=== PATIENT | male | born 1990 | race Caucasian/White ===

== ENCOUNTER → 2024-02-14 | Outpatient (CLI) | payer MEDICAID, SELFPAY ==
--- NOTE | 2024-02-14 14:10 | RAD_ITS ---
INDICATION: back pain EXAMINATION/TECHNIQUE: X-RAY - XR Spine Lumbar 2 or 3 Views COMPARISON: No relevant prior comparison study available FINDINGS: VERTEBRAE: Preserved vertebral body height. No fracture. No spondylolisthesis. Preservation of the normal lumbar lordosis. No significant facet arthropathy. DISCS: Disc spaces are maintained. INCLUDED ABDOMEN: Included bowel gas pattern is non-obstructive. RAD/Lumbar Spine 2 or 3 Views IMPRESSION: No evidence of lumbar spinal fracture or spondylolisthesis. Electronically Signed: Shahriar Grimes MD at 14:38 EDT ,
== END | disposition home or self-care (01) ==
LOC: MTRAD 14:10
PROVIDERS: PCP Family Medicine; Referring Provider Family Medicine; Visit Provider Family Medicine
DX: M48.00 Spinal stenosis, site unspecified (principal)
CPT/HCPCS: 72100

== ENCOUNTER 2024-03-22 12:30 | Outpatient (RCR) | payer MEDICAID, SELFPAY ==
--- NOTE | 2024-02-21 14:47 | HP.PTEVAL_ITS ---
Patient's Visit Information Visit Information Visit Information: BARBARA YAP is a 33 year old M referred to Physical Therapy by Dr. Julio Culp DO with a diagnosis of SPINAL STENOSIS. 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 Patient seen DR kristen SHORT. Patient had x-rays -Patient stated back pain worse with prior job demands made symptoms worse. Patient gets lumbar symmetrical ache occasional sharp pain. Aggravating bending,lifting ,standing. Alleviating factors sitting rest. Denies paresthesia/tingling-.Bowel/bladder -. Coughing/sneezing -. Patient sleeping good. Medication: meloxicam. No trauma or injury. Patient has lifting which caused back pain described as ache.Patient pain affects QOL and function/job demands. Patient goals to decrease pain. SOCAIL: single VOCATION: unemployed Pain Bilateral Back: Pain Intensity (Out of 10): 2 Pain Intensity Range: 10 Objective Objective: POSTURE: WFL PALPATION: unremarkable NEURO: denies paresthesia/tingling ,reflexes L3-4,L4-5-S1 2/3 FLEXABILITY: hamstrings mod tight LUMBAR ROM: flexion min loss ,extension min loss ,side glides min loss MMT: quads/hams 5/5 ,ankle 5/5 ,hip flexion 5/5 Special Tests L/S Slump test left side: Negative L/S Slump test right side: Negative L/S Left Straight Leg Raise: Negative L/S Right Straight Leg Raise: Negative Lumbar Standing: Flexion - Mechanical Response: No effect Lumbar Standing: Flexion - Symptoms During Testing: Increases Lumbar Standing: Flexion - Symptoms After Testing: Worse Lumbar Standing: Extension - Mechanical Response: No effect Lumbar Standing: Extension - Symptoms During Testing: Decreases Lumbar Standing: Extension - Symptoms After Testing: Better Lumbar Standing: Right Side Glides - Mechanical Response: No effect Lumbar Standing: Right Side [place] - Symptoms During Testing: No effect Lumbar Standing: Right Side [place] - Symptoms After Testing: No effect Lumbar Standing: Left Side [place] - Mechanical Response: No effect Lumbar Standing: Left Side [place] - Symptoms During Testing: No effect Lumbar Standing: Left Side [place] - Symptoms After Testing: No effect Lumbar Lying: Flexion - Mechanical Response: No effect Lumbar Lying: Flexion - Symptoms During Testing: No effect Lumbar Lying: Flexion - Symptoms After Testing: No effect Lumbar Lying: Extension - Mechanical Response: No effect Lumbar Lying: Extension - Symptoms During Testing: Decreases Lumbar Lying: Extension - Symptoms After Testing: Better Balance/Special Test Scores Oswestry Low Back Score: 20 Goals Goal 1:: Patient to be I with HEP for lumbar Goal Time Frame: 4-6 Weeks Goal 2:: Patient to demonstrated 50% improvement with less pain and improved function. Goal Time Frame: 4-6 Weeks Goal 3:: Patient to improve lumbar ROM for function of recovery to lift effectly Goal Time Frame: 4-6 Weeks Goal 4:: Patient to improve back oswestry score by 5 points to improve QOL and function Goal Time Frame: 4-6 Weeks Goal 5:: Patient be able to improve posture/body mechanics 90% for prophylaxis Rehabilitation Potential Physical Therapy Diagnosis: This patient has lumbar pain with possible derangement with pain with positioning and motion testing thus benefit from skilled PT Rehabilitation Potential: Good Anticipated Interventions Patient/Client Instruction: Educate patient on: Condition and Plan of Care For the Purpose of:: To decrease pain, To increase ROM, To improve muscle performance and motor function, To improve ability to perform ADL's, To increase tolerance to activity/condition/position, To improve ability of physical actions for home/community/work/leisure, To improve health of tissue, To decrease soft tissue restriction, To increase flexibility/ROM, To prevent re-injury and To improve tolerance to ADL's Therapeutic Exercise to Include: Strength training, Postural training, Flexibilty training and Dynamic Lumbar Stabilization For the Purpose of:: To decrease pain, To increase ROM, To improve muscle performance and motor function, To improve ability to perform ADL's, To increase tolerance to activity/condition/position, To improve ability of physical actions for home/community/work/leisure, To improve health of tissue, To decrease soft tissue restriction, To improve endurance and To reduce risk of recurrence Text: Thank you for the opportunity to evaluate your patient. For Medicare and Medicare HMO plans, please review the plan of care and approve it. It will need to be FAXED BACK to us at [phone] for Medicare purposes. For Medicare only, by signing this I certify the plan of care. Please let me know if there are questions or concerns regarding this plan of care. Physician Signature: Date:
--- NOTE | 2024-04-04 16:41 | HP.PTDCSUM ---
Discharge Summary D/C summary: It has been my pleasure to treat BARBARA YAP referred by Dr. Julio Culp DO, with the diagnosis of SPINAL STENOSIS for a total of 7 visit(s). Discharge Date: Please see the following information for a summary of their discharge status. Subjective Subjective: Not much better dependant on standing ,bending/lifting. Pain Bilateral Back: Pain Intensity (Out of 10): 1 Objective Objective/Function: POSTURE: WFL PALPATION: unremarkable NEURO: denies paresthesia/tingling ,reflexes L3-4,L4-5-S1 2/3 FLEXABILITY: hamstrings mod tight LUMBAR ROM: flexion min loss ,extension min loss ,side glides min loss MMT: quads/hams 5/5 ,ankle 5/5 ,hip flexion 5/5 Special Tests L/S Slump test left side: Negative L/S Slump test right side: Negative L/S Left Straight Leg Raise: Negative L/S Right Straight Leg Raise: Negative Goals Goal 1:: Patient to be I with HEP for lumbar Goal Progress: Progressing Goal 2:: Patient to demonstrated 50% improvement with less pain and improved function. Goal Progress: Progressing Goal 3:: Patient to improve lumbar ROM for function of recovery to lift effectly Goal Progress: Progressing Goal 4:: Patient to improve back oswestry score by 5 points to improve QOL and function Goal Progress: Progressing Goal 5:: Patient be able to improve posture/body mechanics 90% for prophylaxis Goal Progress: Progressing Plan Plan: RTD MAY BENEFIT FROM MRI PER MD D/C Information d/c sentence: If there are questions or concerns regarding this patient's physical therapy, please feel free to call me at [phone]. Thank you for the referral of this patient. Sincerely, Fabiano Saenz, PT, Cert MDT, OCS Balance/Gait/Functional tests Balance/Special Test Scores Oswestry Low Back Score: 20
== END 2024-03-22 19:00 | disposition home or self-care (01) ==
LOC: PT 12:30
PROVIDERS: PCP Family Medicine; Referring Provider Family Medicine; Visit Provider Family Medicine
DX: M48.00 Spinal stenosis, site unspecified (principal)
CPT/HCPCS: 97110; 97162; 97530

== ENCOUNTER → 2024-04-23 | Outpatient (CLI) | payer MEDICAID, SELFPAY ==
--- NOTE | 2024-04-23 07:48 | MRI_ITS ---
STUDY: MRI LUMBAR SPINE WITHOUT CONTRAST REASON FOR EXAM: Male, 33 years old. LUMBAR PAIN TECHNIQUE: Standardized fat and water weighted pulse sequences were obtained in the sagittal and axial planes. COMPARISON: X-ray 02/14/2024 FINDINGS: T12-L1: Normal endplates. Normal disc height, hydration and morphology. Normal bilateral facet joints. Normal central canal and bilateral lateral recesses. Normal bilateral intervertebral neural foramina. Normal lumbar lordosis. There is no substantial scoliosis. Normal conus medullaris that terminates at the T12/L1. L1-2: Normal endplates. Normal disc height, hydration and morphology. Normal bilateral facet joints. Normal central canal and bilateral lateral recesses. Normal bilateral intervertebral neural foramina. L2-3: Normal endplates. Normal disc height, hydration and morphology. Normal bilateral facet joints. Normal central canal and bilateral lateral recesses. Normal bilateral intervertebral neural foramina. L3-4: Normal endplates. Normal disc height, hydration and morphology. Normal bilateral facet joints. Normal central canal and bilateral lateral recesses. Normal bilateral intervertebral neural foramina. L4-5: Some disc desiccation but no disc protrusion, spinal stenosis, neural foraminal stenosis. L5-S1: Some disc desiccation but no disc protrusion, spinal stenosis, neural foraminal stenosis Normal visualized sacral ala. Mild friction related edema in the posterior subcutaneous fat. MRI/Spine Lumbar (Routine) IMPRESSION: Normal unenhanced MR examination of the lumbar spine. Electronically Signed: Gino Munguia MD at 13:34 EDT ,
== END | disposition home or self-care (01) ==
LOC: MRI 07:37
PROVIDERS: PCP Family Medicine; Referring Provider Physician Assistant; Visit Provider Physician Assistant
DX: M54.50 Low back pain, unspecified (principal)
CPT/HCPCS: 72148

== ENCOUNTER → 2024-05-30 | Outpatient (CLI) | payer MEDICAID, SELFPAY ==
--- NOTE | 2024-05-30 09:01 | NEURO ---
NCS and/or EMG Patient Report Ordering Doctor: Julio Culp DATE OF SERVICE: 05/30/24 Sree presents with complaints of bilateral upper extremity numbness and tingling. Neurodiagnostic findings: Median motor nerve demonstrates normal distal latency, amplitude and conduction velocity bilaterally. Ulnar motor response is within normal limits bilaterally. Normal median and ulnar F?waves. Sensory responses are normal. Needle EMG testing was performed in the upper limbs. All muscles tested showed no evidence of denervation with normal motor unit action potentials. Electrodiagnostic impression: This is normal electrodiagnostic study of the upper limbs. There is no electrodiagnostic evidence for peripheral neuropathy, including carpal tunnel or cubital tunnel syndrome. There is no electrodiagnostic evidence for a radial neuropathy. There is no electrodiagnostic evidence for cervical radiculopathy. Multi Select Codes Neurology Neurology Interp Codes: 26604-57 Musc test done w/n test comp (interp) (2) and 31181-93 Nrv cndj test 13/> studies (interp)
== END | disposition home or self-care (01) ==
LOC: PSN 06:48
PROVIDERS: PCP Family Medicine; Referring Provider Family Medicine; Visit Provider Family Medicine
DX: G56.30 Lesion of radial nerve, unspecified upper limb (principal)
CPT/HCPCS: 95886; 95913

== ENCOUNTER 2024-07-19 08:33 | Outpatient (RCR) | payer MEDICAID, SELFPAY | END 2024-08-11 23:59 | LOC: NS 08:33 | PROVIDERS: PCP Family Medicine; Referring Provider Family Medicine; Visit Provider Family Medicine | DX: Z71.3 Dietary counseling and surveillance (principal); E66.01 Morbid (severe) obesity due to excess calories; Z68.43 Body mass index [BMI] 50.0-59.9, adult | CPT/HCPCS: 97802 ==

== ENCOUNTER 2024-08-21 08:51 | Outpatient (RCR) | payer MEDICAID, SELFPAY | END 2024-09-11 23:59 | LOC: NS 08:51 | PROVIDERS: PCP Family Medicine; Referring Provider Family Medicine; Visit Provider Family Medicine | DX: Z71.3 Dietary counseling and surveillance (principal); E66.01 Morbid (severe) obesity due to excess calories; Z68.43 Body mass index [BMI] 50.0-59.9, adult | CPT/HCPCS: 97803 ==

== ENCOUNTER 2024-09-24 08:54 | Outpatient (RCR) | payer MEDICAID, SELFPAY | END 2024-10-12 23:59 | LOC: NS 08:54 | PROVIDERS: PCP Family Medicine; Referring Provider Family Medicine; Visit Provider Family Medicine | DX: Z71.3 Dietary counseling and surveillance (principal); E66.01 Morbid (severe) obesity due to excess calories; Z68.43 Body mass index [BMI] 50.0-59.9, adult | CPT/HCPCS: 97803 ==

== ENCOUNTER 2024-11-05 09:37 | Outpatient (RCR) | payer MEDICAID, SELFPAY | END 2024-11-09 23:59 | LOC: NS 09:37 | PROVIDERS: PCP Family Medicine; Referring Provider Family Medicine; Visit Provider Family Medicine | DX: E66.01 Morbid (severe) obesity due to excess calories (principal) | CPT/HCPCS: 97803 ==

== ENCOUNTER 2024-11-17 11:55 | Emergency (ER) | payer MEDICAID, SELFPAY ==
[2024-11-17 11:56] VITALS: BP 152/90; PULSE 104; RESP 16; TEMP 36.4; O2SAT 99; BMI 49.7
[2024-11-17] MEDS: Lidocaine 1% (20 ml mdv) 20 ML Vial 10 ML INFILT (12:38)
--- NOTE | 2024-11-17 13:51 | EDS_ITS ---
HPI History of Present Illness Chief Complaint: Abscess Narrative Narrative: Patient is a 34-year-old male with no known significant past medical history who presented to the emergency department with chief complaint of buttock pain. According to the patient he states the last few days he has noted worsening buttock pain and increased swelling just below his buttocks. He states that he has had this happen before but they have not gotten to the size. He states that it is very painful for him to sit or attempt to walk therefore he came here for the valuation management. Patient denies any history of diabetes. PFSH PFSH Medical History no medical history Home Medications ?Medication ?Instructions ?Recorded ?Last Taken ?Type ibuprofen 125 mg-acetaminophen 250 1 tab PO Q8H PRN Unknown History mg tablet (Advil Dual Action) cephalexin 500 mg capsule 500 mg PO Q12H 7 days #14 ca ps 11/17/24 Unknown Rx sulfamethoxazole 800 1 tab PO Q12H 7 days #14 tab s 11/17/24 Unknown Rx mg-trimethoprim 160 mg tablet (Bactrim DS) Allergy/AdvReac Type Severity Reaction Status Date / Time No Known Allergies Allergy Verified 11/17/24 11:57 Family History Father Diabetes Arthritis Grandfather Testicular cancer Social History adopted: No household members: family current occupational status: unemployed pets and animals: Yes (1) pets and animals: dog(s) sexually active: No Smoking Status: Current every day smoker tobacco type: cigarettes Tobacco: How many years used: 12 alcohol intake: never substance use type: does not use caffeine: Yes (6) Type: other frequency: does not exercise do you feel safe at home: Yes ROS ROS ED ROS Narrative Constitutional: Denies fevers, chills, headaches, lightness, dizziness Eyes: Denies change in vision double vision blurry vision Abdomen: Complains of left buttock pain denies abdominal pain nausea vomiting : Denies urinary symptoms Neurological: Denies numbness, weakness, tingling Musculoskeletal: Denies back pain Skin: Complains of swelling near his but as noted above EXAM Physical Exam Narrative Exam Narrative: General: Patient was lying in bed rest comfortably did not appear to be in acute distress Head: Atraumatic, normocephalic Eyes: PERRL bilaterally, EOMI bilaterally, no conjunctival injection noted Neck: Soft, supple, trachea midline Cardiovascular: Regular rate and rhythm no murmurs gallops rubs noted Abdomen: Soft, nondistended, nontender to palpation Genitourinary: No concern for Yonas's gangrene Rectal: Patient has a area of swelling noted in his perineal region there is fluctuance noted with tender to palpation, no concern for perirectal abscess Extremities: +5/5 strength noted in bilateral upper and lower extremities Neurological: Patient following commands knew that he was at [facility] year is 2024 Skin: See rectal Const Vital Signs: 11/17/24 11:56 Temperature 97.6 F L Temperature Source Temporal Pulse Rate 104 H Respiratory Rate 16 Blood Pressure 152/90 H Blood Pressure Mean 110 Pulse Ox 99 Oxygen Delivery Method Room Air MDM MDM MDM Narrative Medical decision making narrative: patient is a 34-year-old male who presented to the emergency department with chief complaint of perineal swelling. On the differential diagnose includes Melamin to cellulitis, abscess. Patient had the area anesthetized and incision and drainage was performed there was significant amount of purulent drainage expressed. Patient tolerated this well without complications. Patient was advised to do sitz bath as he was given general surgery follow-up as well as encouraged to follow-up with his primary care physician. Patient was given first dose of antibiotics here and antibiotics sent to the pharmacy. He is encouraged to return for worsening pain and swelling while on the antibiotics and was advised that if this occurs he will need to return for IV antibiotics. Patient's glucose was checked here and was normal. He is agreeable this plan all question concerns answered he is discharged home in stable condition and states that he is feeling much better. Lab Data Labs: Laboratory Results - last 24 hr 11/17/24 13:44 POC Glucose 81 Discharge Plan Triage Chief Complaint: Abscess ED Provider: Aston Caldera Dx/Rx/DC Orders Clinical Impression: Abscess of perineum Prescriptions: New cephalexin 500 mg capsule 500 mg PO Q12H 7 Days Qty: 14 0RF sulfamethoxazole-trimethoprim [Bactrim DS] 800-160 mg tablet 1 tab PO Q12H 7 Days Qty: 14 0RF No Action ibuprofen-acetaminophen [Advil Dual Action] 125-250 mg tablet 1 tab PO Q8H PRN Primary Care Provider: Julio Culp Referrals: Julio Culp, [Primary Care Provider] - Uli Elkins MD [Med Staff - Active Staff] - Activity Restrictions/Additional Instructions: Take antibiotics as prescribed. Follow-up on wound cultures that were obtained here with your primary care physician. You referred to general surgery as well. Ensure you are doing sitz bath as we discussed. If you are having fevers worsening pain significant drainage from the wound while on antibiotics you need to return for IV antibiotics. Print Language: Uzbek Disposition Disposition: Home, Self Care
[2024-11-17 14:01] LABS: Bedside Glucose 81 mg/dL (74-106)
[2024-11-17] MEDS: Smz/Tmp Ds Tablet 1 TABLET PO (14:07)
[2024-11-17] MEDS: Cephalexin 250 MG Capsule 500 MG PO (14:07)
[2024-11-17 14:08] VITALS: BP 159/89; PULSE 77; RESP 18; TEMP 37; O2SAT 100
== END 2024-11-17 14:20 | disposition home or self-care (01) ==
PROVIDERS: Emergency Provider Emergency Medicine; PCP Family Medicine; Visit Provider Emergency Medicine
DX: L02.215 Cutaneous abscess of perineum (principal); F17.210 Nicotine dependence, cigarettes, uncomplicated; B96.20 Unspecified Escherichia coli [E. coli] as the cause of diseases classified elsewhere; N45.1 Epididymitis; B95.8 Unspecified staphylococcus as the cause of diseases classified elsewhere
CPT/HCPCS: 10060; 82962; 87070; 87075; 87077; 87186; 87205; 99283

== ENCOUNTER 2024-12-06 09:41 | Outpatient (RCR) | payer MEDICAID, SELFPAY | END 2024-12-10 23:59 | LOC: NS 09:41 | PROVIDERS: PCP Family Medicine; Referring Provider Family Medicine; Visit Provider Family Medicine | DX: Z71.3 Dietary counseling and surveillance (principal); E66.01 Morbid (severe) obesity due to excess calories; Z68.42 Body mass index [BMI] 45.0-49.9, adult | CPT/HCPCS: 97803 ==

== ENCOUNTER 2025-01-09 09:45 | Outpatient (RCR) | payer MEDICAID, SELFPAY | END 2025-01-09 23:59 | LOC: NS 09:45 | PROVIDERS: PCP Family Medicine; Referring Provider Family Medicine; Visit Provider Family Medicine | DX: Z71.3 Dietary counseling and surveillance (principal); E66.01 Morbid (severe) obesity due to excess calories; Z68.42 Body mass index [BMI] 45.0-49.9, adult | CPT/HCPCS: 97803 ==

== ENCOUNTER 2025-02-13 10:42 | Outpatient (RCR) | payer MEDICAID, SELFPAY | END 2025-03-11 23:59 | LOC: NS 10:42 | PROVIDERS: PCP Family Medicine; Referring Provider Family Medicine; Visit Provider Family Medicine | DX: Z71.3 Dietary counseling and surveillance (principal); E66.01 Morbid (severe) obesity due to excess calories; Z68.42 Body mass index [BMI] 45.0-49.9, adult | CPT/HCPCS: 97803 ==

== ENCOUNTER 2025-03-20 10:51 | Outpatient (RCR) | payer MEDICAID, SELFPAY | END 2025-04-11 23:59 | LOC: NS 10:51 | PROVIDERS: PCP Family Medicine; Referring Provider Family Medicine; Visit Provider Family Medicine | DX: Z71.3 Dietary counseling and surveillance (principal); E66.01 Morbid (severe) obesity due to excess calories; Z68.42 Body mass index [BMI] 45.0-49.9, adult | CPT/HCPCS: 97803 ==

== ENCOUNTER 2025-04-29 10:51 | Outpatient (RCR) | payer MEDICAID, SELFPAY | END 2025-05-12 23:59 | LOC: NS 10:51 | PROVIDERS: PCP Family Medicine; Referring Provider Family Medicine; Visit Provider Family Medicine | DX: Z71.3 Dietary counseling and surveillance (principal); E66.01 Morbid (severe) obesity due to excess calories; Z68.42 Body mass index [BMI] 45.0-49.9, adult | CPT/HCPCS: 97803 ==

== ENCOUNTER 2025-06-03 10:48 | Outpatient (RCR) | payer MEDICAID, SELFPAY | END 2025-06-11 23:59 | LOC: NS 10:48 | PROVIDERS: PCP Family Medicine; Referring Provider Family Medicine; Visit Provider Family Medicine | DX: Z71.3 Dietary counseling and surveillance (principal); E66.01 Morbid (severe) obesity due to excess calories; Z68.42 Body mass index [BMI] 45.0-49.9, adult | CPT/HCPCS: 97803 ==

== ENCOUNTER 2025-07-09 09:55 | Outpatient (RCR) | payer MEDICAID, SELFPAY | END 2025-07-12 23:59 | LOC: NS 09:55 | PROVIDERS: PCP Family Medicine; Referring Provider Family Medicine; Visit Provider Family Medicine | DX: Z71.3 Dietary counseling and surveillance (principal); E66.01 Morbid (severe) obesity due to excess calories; Z68.42 Body mass index [BMI] 45.0-49.9, adult | CPT/HCPCS: 97803 ==

== ENCOUNTER 2025-08-20 09:54 | Outpatient (RCR) | payer MEDICAID, SELFPAY | END 2025-09-11 23:59 | LOC: NS 09:54 | PROVIDERS: PCP Family Medicine; Referring Provider Family Medicine; Visit Provider Family Medicine | DX: Z71.3 Dietary counseling and surveillance (principal); E66.01 Morbid (severe) obesity due to excess calories; Z68.42 Body mass index [BMI] 45.0-49.9, adult | CPT/HCPCS: 97803 ==

== ENCOUNTER 2025-09-07 09:55 | Emergency (ER) | payer MEDICAID, SELFPAY ==
[2025-09-07 09:55] VITALS: BP 147/97; PULSE 74; RESP 18; TEMP 36.7; O2SAT 100; BMI 47.2
--- NOTE | 2025-09-07 10:17 | EDS_ITS ---
HPI History of Present Illness Chief Complaint: Dental Narrative Narrative: Pt is a 34-year-old male who is presenting to the ER with chief complaint of dental pain, several small fractures of his teeth to the area of 1, 2, 3, 4, 5. Patient has a longstanding poor dental care and poor dentition. Patient has not seen a dentist for several years. Patient does not have any type of foul taste or pus in his mouth that suggest infection. Patient has mild mild swelling to the right upper gingiva. Patient states he did not get into a dentist today. Patient is having dental pain, taking Motrin [id number]. Patient is currently not employed. Patient denies any type of trauma, no facial trauma. Patient has no difficulty breathing, no airway compromise. No shortness of breath. Patient has no other intraoral pathology. Patient states that his insurance limits dental clinics he can see. Patient was given dental list, also was given multiple different avenues of dental clinics available, including [facility] and [place] along with health departments. Patient states any type of pressure over tooth 1, 2, 5 is causing moderate amount of pain. REVIEW OF SYSTEMS: Unless otherwise stated in this report the patient's positive and negative responses for review of systems for constitutional, eyes, ENT, cardiovascular, respiratory, gastrointestinal, neurological, , musculoskeletal, and integument systems and related systems to the presenting problem are either stated in the history of present illness or were not pertinent or were negative for the symptoms and/or complaints related to the presenting medical problem. Nurse's notes and vital signs reviewed. The patient is not hypoxic. Vital signs reviewed and patient is not hypoxic. Nurses notes reviewed and patient is noted to be non-hypoxic. General: The patient is comfortable, alert and oriented x3, well appearing, non toxic in no apparent distress. Head: Atraumatic and normocephalic. Eyes: Normal conjunctiva ENT: The oropharynx is normal. No pharyngeal erythema, uvular edema, tonsillar exudates, asymmetry or trismus. Uvula is midline. Mouth is normal to inspection With the exception of a mild pain on percussion of the tooth #1-5 significant and evidence of dental caries. There is no evidence of facial asymmetry or abscess formation. Floor of the mouth is soft. No tenderness in the submental or submandibular space. No tongue elevation or deviation. The patient has no evidence of periapical abscess, gingivitis, ANUG or other acute pathology. Airway is patent. Neck: The neck demonstrates normal range of motion. No meningeals signs are present. No stridor. No masses or lymphandenopathy noted. Respiratory: No acute distress, lungs are clear to auscultation, no wheezing, rhonchi, or rales noted. No stridor or retractions are noted. Cardiovascular: Regular rate and rhythm Skin: The skin exam shows no evidence of rashes Neuro: Alert and oriented x4, normal speech Lymphatic: No cervical lymphadenopathy PFSH PFSH Medical History no medical history Home Medications ?Medication ?Instructions ?Recorded ?Last Taken ?Type ibuprofen 125 mg-acetaminophen 250 1 tab PO Q8H PRN Unknown History mg tablet (Advil Dual Action) cephalexin 500 mg capsule 500 mg PO Q12H 7 days #14 ca ps 11/17/24 Unknown Rx sulfamethoxazole 800 1 tab PO Q12H 7 days #14 tab s 11/17/24 Unknown Rx mg-trimethoprim 160 mg tablet (Bactrim DS) penicillin V potassium 500 mg 500 mg PO 3XD #30 tabs 1 11/08/24 Unknown Rx tablet Allergy/AdvReac Type Severity Reaction Status Date / Time No Known Allergies Allergy Verified 09/07/25 09:56 Family History Father Diabetes Arthritis Grandfather Testicular cancer Social History adopted: No household members: family current occupational status: unemployed pets and animals: Yes (1) pets and animals: dog(s) sexually active: No Smoking Status: Current every day smoker tobacco type: cigarettes Tobacco: How many years used: 12 alcohol intake: never substance use type: does not use caffeine: Yes (6) Type: other frequency: does not exercise do you feel safe at home: Yes EXAM Physical Exam Const Vital Signs: 09/07/25 09:55 Temperature 98.1 F Temperature Source Oral Pulse Rate 74 Respiratory Rate 18 Blood Pressure 147/97 H Blood Pressure Mean 113 Pulse Ox 100 Oxygen Delivery Method Room Air MDM MDM MDM Narrative Medical decision making narrative: Patient was educated on alternating Tylenol, Motrin, Orajel, ice. Patient was placed on antibiotic prophylactically because patient needs multiple teeth that are going to be pulled. Patient has no acute signs of abscess at this time. Patient knows the importance of following up with a dentist. Patient was given a dental clinic list along with education on other avenues we may follow-up with. No acute indication for narcotics. Patient understands a follow-up with a dentist for definitive treatment. No question at discharge. Discharge Plan Triage Chief Complaint: Dental ED Provider: Jacoby Logan Dx/Rx/DC Orders Clinical Impression: Atypical face pain, Tooth decay Instructions: Benzocaine, Menthol Dental gel, Understanding Tooth Decay, ED Dental Pain Prescriptions: New penicillin V potassium 500 mg tablet 500 mg PO 3XD Qty: 30 0RF No Action ibuprofen-acetaminophen [Advil Dual Action] 125-250 mg tablet 1 tab PO Q8H PRN cephalexin 500 mg capsule 500 mg PO Q12H 7 Days Qty: 14 0RF sulfamethoxazole-trimethoprim [Bactrim DS] 800-160 mg tablet 1 tab PO Q12H 7 Days Qty: 14 0RF Primary Care Provider: Julio Culp Referrals: Julio Culp DO [Primary Care Provider, Internal Medicine] Activity Restrictions/Additional Instructions: Dental list has been provided. You may alternate Tylenol and either Motrin, Advil, ibuprofen every 4 hours as needed for pain/fever. Take anti-inflammatories with food or drink to help buffer the medication. MAX dose of Tylenol is 3000 mg a day. MAX dose of Motrin, Advil, ibuprofen is 2400 mg a day. You may also follow-up with [facility] or [place] [facility], despite not having dental insurance that covers them. The [facility] that you live and has a health department that is related to Dental clinics as well. Follow-up with PCP for further recommendations Use ice 20 minutes on, 20 minutes off, do not use heat. Antibiotic has been prescribed prophylactically to help prevent infection; So when you do see a dentist, dental work to be done. Print Language: Martiniquais Disposition Disposition: Home, Self Care Discharge Date/Time: 09/07/25 10:40
--- OUTSIDE RECORDS SUMMARY | 2025-09-07 10:25 | XMS RPT_ITS | CCD ---
Author Organization [facility] Care Team Providers Care Director Channel Name Role Phone Dr. Julio Culp DO Primary Care Provider Dr. Julio Culp DO Attending Provider [phone] Robbi FRANK, Dr. Julio Mcmullen Referring Provider [phone] Dr. Aston Caldera DO Emergency Provider Dr. Julio Culp DO Primary Care Provider Dr. Julio Culp DO Attending Provider [phone] Dr. Julio Culp DO Referring Provider [phone] Dr. Aston Caldera DO Attending Provider Dr. Aston Caldera DO Emergency Provider Dr. Julio Culp DO Primary Care Provider Dr. Julio Culp DO Attending Provider [phone] Dr. Julio Culp DO Referring Provider [phone] Dr. Julio Culp DO Primary Care Provider Dr. Julio Culp DO Attending Provider [phone] Dr. Julio Culp DO Referring Provider [phone] Dr. Julio Culp DO Primary Care Provider [phone] Dr. Julio Culp DO Attending Provider [phone] Dr. Julio Culp DO Referring Provider [phone] Dr. Julio Culp DO Primary Care Physician Dr. Julio Culp DO Attending Physician [phone] Julio Culp Attending Unavailable Julio Culp Primary Care Unavailable Julio Culp Referring Unavailable Brown, Julio R Attending Unavailable Brown, Julio R Primary Care Unavailable Brown, Julio R Referring Unavailable Brown, Ujlio R Attending Unavailable Brown, Julio R Referring Unavailable Brown, Julio R Primary Care Unavailable Brown, Julio R Primary Care Unavailable Aston Caldera Attending Unavailable Brown, Julio R Referring Unavailable Brown, Julio R Primary Care Unavailable Brown, Julio R Attending Unavailable Brown, Julio R Referring Unavailable Brown, Julio R Primary Care Unavailable Brown, Julio R Attending Unavailable Brown, Julio R Attending Unavailable Brown, Julio R Referring Unavailable Brown, Julio R Primary Care Unavailable Brown, Julio R Attending Unavailable Brown, Julio R Referring Unavailable Brown, Julio R Primary Care Unavailable Brown, Julio R Referring Unavailable Brown, Julio R Primary Care Unavailable Brown, Julio R Attending Unavailable Brown, Julio R Referring Unavailable Brown, Julio R Primary Care Unavailable Brown, Julio R Attending Unavailable Brown, Julio R Primary Care Unavailable Brown, Julio R Attending Unavailable Brown, Julio R Referring Unavailable Brown, Julio R Primary Care Unavailable Brown, Julio R Attending Unavailable Brown, Julio R Referring Unavailable Brown, Julio R Attending Unavailable Brown, Julio R Primary Care Unavailable Brown, Julio R Referring Unavailable Medications Current Medications Medication Drug Class(es) Dates Sig (Normalized) Sig (Original) acetaminophen 250 mg / ibuprofen 125 mg oral tablet (6 sources) Nonsteroidal Anti-inflammatory Drug Start: 04-13-2024 cephalexin 500 mg oral capsule (6 sources) Cephalosporin Antibacterial Start: 11-17-2024 take 1 capsule by mouth every twelve hours sulfamethoxazole 800 mg / trimethoprim 160 mg oral tablet (6 sources) Dihydrofolate Reductase Inhibitor Antibacterial, Sulfonamide Antimicrobial Start: 11-17-2024 Completed/Discontinued Medications Medication Drug Class(es) Dates Sig (Normalized) Sig (Original) etodolac 300 mg oral capsule (6 sources) Nonsteroidal Anti-inflammatory Drug Start: 09-30-2013 End: 02-14-2024 take 1 capsule by mouth three times daily at mealtime Etodolac 300 MG capsule Discontinued 300 mg PO 3 TIMES DAILY WITH MEALS 30 0 September 30, 2013 1:00am February 14, 2024 1:07pm meloxicam 15 mg oral tablet (6 sources) Nonsteroidal Anti-inflammatory Drug Start: 02-14-2024 End: 04-13-2024 take 1 tablet by mouth once daily Meloxicam 15 mg tablet Discontinued 15 mg PO DAILY 30 February 14, 2024 12:00am April 13, 2024 7:32am Problems Problem Classification Problem Date Documented Da te Episodic/Chronic Other nervous system disorders (6 sources) Radial neuropathy; 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, 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-24-2024 Chronic Other nutritional; endocrine; and metabolic disorders (6 sources) Morbid obesity; Translations: [Morbid (severe) obesity due to excess calories] 02-14-2024 Chronic Skin and subcutaneous tissue infections (6 sources) Abscess of perineum; Translations: [Cutaneous abscess of perineum] 11-17-2024 Episodic Spondylosis; intervertebral disc disorders; other back problems (12 sources) Low back pain; Translations: [Low back pain] 04-13-2024 Episodic Unclassified (1 source) Low back pain, unspecified; Translations: [Low back pain, unspecified] Onset: 11-26-2024 Results Test Name Value Interpretation Reference Range Facil ity Culture, Anaerobic Any Sourc rusty 11-21-2024 CUAN PERINEUM Studies have confirmed that Anaerobic Gram Positive Cocci are routinely SUSCEPTABLE to Penicillin and generally susceptible to Beta-lactams and Beta-lactamase inhibitors, Cephalosporins, Carbapenems and Metronidazole. They are showing increased RESISTANCE to Clindamycin Anaerobic cocci Normal [facility] Comment on above: Performed By: #### M 100.3000, M100.2000, M100.4001 #### [facility] [address] [place], [place], [id number] Wound Cultureon 11-20-2024 WC PERINEUM Escherichia coli Amount Growth Rare Staphylococcus haemolyticus Staphylococcus haemolyticus SCAP Staphylococcus epidermidis Staphylococcus capitis Staphylococcus epidermidis Ampicillin+Sulbac Islt LAVON 16 Cefepime Islt LAVON <=0.12 S cefTRIAXone Islt LAVON <=0.25 S Ciprofloxacin Islt LAVON <=0.06 S B-Lactamase Extended Susc Islt NEG Gentamicin Islt LAVON <=1 S levoFLOXacin Islt LAVON <=0.12 S Meropenem Islt LAVON <=0.25 S Pip+Tazo Islt LAVON <=4 S TMP SMX Islt LAVON >=320 R Staphylococcus haemolyticus: REACTION cefOXitin Susc Islt NEG Doxycycline Islt LAVON 4 Clindamycin Islt LAVON <=0.12 S Clindamycin.induced Susc Islt NEG Erythromycin Islt LAVON <=0.25 S Gentamicin Islt LAVON <=0.5 S Linezolid Islt LAVON 2 S Oxacillin Susc Islt <=0.25 S Tetracycline Islt LAVON >=16 R TMP SMX Islt LAVON <=10 S Vancomycin Islt LAVON <=0.5 S Staphylococcus capitis: REACTION cefOXitin Susc Islt NEG Doxycycline Islt LAVON 1 Clindamycin Islt LAVON <=0.12 S Clindamycin.induced Susc Islt NEG Erythromycin Islt LAVON <=0.25 S Gentamicin Islt LAVON <=0.5 S Linezolid Islt LAVON 2 S Oxacillin Susc Islt <=0.25 S Tetracycline Islt LAVON <=1 S TMP SMX Islt LAVON <=10 S Vancomycin Islt LAVON <=0.5 S Staphylococcus epidermidis: REACTION cefOXitin Susc Islt NEG Doxycycline Islt LAVON <=0.5 Clindamycin Islt LAVON 0.25 S Clindamycin.induced Susc Islt NEG Erythromycin Islt LAVON <=0.25 S Gentamicin Islt LAVON <=0.5 S Linezolid Islt LAVON 1 S Oxacillin Susc Islt <=0.25 S Tetracycline Islt LAVON <=1 S TMP SMX Islt LAVON <=10 S Vancomycin Islt LAVON <=0.5 S Normal [facility] Comment on above: Performed By: #### M 100.3000, M100.1999, M100.4001 #### [facility] [address] [place], [address] Gram Stainon 11-19-2024 GS PERINEUM Gram Stain 3+ White Blood Cells 3+ Gram negative rods Rare Gram positive cocci Rare Gram positive rods No Epithelial cells Normal [facility] Comment on above: Performed By: #### M 100.3000, M100.1999, M100.4001 #### [facility] [address] [place], [place], [address] Anaerobic cultureOrdered By: Aston Caldera on 11-17-2024 Bacteria identified Anaer cx Nom (Unsp spec) Anaerobic cocci Abnormal [facility] Bacteria identified Anaer cx Nom (Unsp spec)Ordered By: Aston Caldera on 11-17-2024 Anaerobic Culture Anaerobic cocci Abnormal [facility] Bedside Glucoseon 11-17-2024 FINGERSTICK GLU 81 mg/dL Normal 74-106 [facility] Comment on above: Result Comment: [place]ZZ [place] OF PATIENT CARE PER NURSING PROTOCOL Performed By: #### L 501.080 #### [facility] [address] [place], [address] Emergency Department Summary on 11-17-2024 Emergency Department Summary [facility] Medical Records Department [address] [place] [address] Emergency Department Summary 11/17/24 MR#: [id number] Acct: [id number] Name: BARBARA YAP Rep #: [id number] : 1990 34 From: Aston Caldera DO PCP: Dr. Julio Culp, DO Status:DEP ER Location: ED ADDENDUM by Dr. Danny Snow DO on 11/21/24 at 2320 Reviewed patient's wound culture notes E. coli staph hemolyticus, staph capitis, staph epididymitis. He sent home on Keflex and Bactrim. Both of these antibiotics will cover and has sensitivities to the bacteria. No changes to treatment at this time. 11/21/24 2320 Cosigner Signature (if applicable): cc: Dr. Julio Culp, * Signed HPI History of Present Illness Chief Complaint: Abscess Narrative Narrative: Patient is a 34-year-old male with no known significant past medical history who presented to the emergency department with chief complaint of buttock pain. According to the patient he states the last few days he has noted worsening buttock pain and increased swelling just below his buttocks. He states that he has had this happen before but they have not gotten to the size. He states that it is very painful for him to sit or attempt to walk therefore he came here for the valuation management. Patient denies any history of diabetes. PFSH PFSH Medical History no medical history Home Medications ???Medication ???Instructions ???Recorded ???Last Taken ???Type ibuprofen 125 mg-acetaminophen 250 1 tab PO Q8H PRN 04/13/24 Unknow n History mg tablet (Advil Dual Action) cephalexin 500 mg capsule 500 mg PO Q12H 7 days #14 caps 05/06 Unknown Rx sulfamethoxazole 800 1 tab PO Q12H 7 days #14 tabs 0305/06 Unknown Rx mg-trimethoprim 160 mg tablet (Bactrim DS) Allergy/AdvReac Type Severity Reaction Status Date / Time No Known Allergies Allergy Verified 11/17/24 11:57 Family History Father Diabetes Arthritis Grandfather Testicular cancer Social History adopted: No household members: family current occupational status: unemployed pets and animals: Yes (1) pets and animals: dog(s) sexually active: No Smoking Status: Current every day smoker tobacco type: cigarettes Tobacco: How many years used: 12 alcohol intake: never substance use type: does not use caffeine: Yes (6) Type: other frequency: does not exercise do you feel safe at home: Yes ROS ROS ED ROS Narrative Constitutional: Denies fevers, chills, headaches, lightness, dizziness Eyes: Denies change in vision double vision blurry vision Abdomen: Complains of left buttock pain denies abdominal pain nausea vomiting : Denies urinary symptoms Neurological: Denies numbness, weakness, tingling Musculoskeletal: Denies back pain Skin: Complains of swelling near his but as noted above EXAM Physical Exam Narrative Exam Narrative: General: Patient was lying in bed rest comfortably did not appear to be in acute distress Head: Atraumatic, normocephalic Eyes: PERRL bilaterally, EOMI bilaterally, no conjunctival injection noted Neck: Soft, supple, trachea midline Cardiovascular: Regular rate and rhythm no murmurs gallops rubs noted Abdomen: Soft, nondistended, nontender to palpation Genitourinary: No concern for Yonas's gangrene Rectal: Patient has a area of swelling noted in his perineal region there is fluctuance noted with tender to palpation, no concern for perirectal abscess Extremities: +5/5 strength noted in bilateral upper and lower extremities Neurological: Patient following commands knew that he was at [facility] year is 2024 Skin: See rectal Const Vital Signs: 11/17/24 11:56 Temperature 97.6 F L Temperature Source Temporal Pulse Rate 104 H Respiratory Rate 16 Blood Pressure 152/90 H Blood Pressure Mean 110 Pulse Ox 99 Oxygen Delivery Method Room Air MDM MDM MDM Narrative Medical decision making narrative: patient is a 34-year-old male who presented to the emergency department with chief complaint of perineal swelling. On the differential diagnose includes Melamin to cellulitis, abscess. Patient had the area anesthetized and incision and drainage was performed there was significant amount of purulent drainage expressed. Patient tolerated this well without complications. Patient was advised to do sitz bath as he was given general surgery follow-up as well as encouraged to follow-up with his primary care physician. Patient was given first dose of antibiotics here and antibiotics sent to the pharmacy. He is encouraged to return for worsening pain and swelling while on the antibiotics and was advised that if this occurs he will need to return for IV a (more content not included)... Normal [facility] deOrdered By: Aston Caldera on 11-17-2024 Bedside Glucose (Misc Panel) 81 mg/dL 74-106 [facility] Comment on above: MANAGEMENT OF PATIEN T CARE PER NURSING PROTOCOL Glucose [Mass/Vol] 81 mg/dL 74-106 [facility] Comment on above: MANAGEMENT OF PATI T CARE PER NURSING PROTOCOL Gram stainOrdered By: Aston Caldera on 11-17-2024 Microscopic observation Gram stain Nom (Unsp spec) [facility] Routine wound cultureOrdered By: Aston Caldera on 11-17-2024 Microbial culture, routine Staphylococcus haemolyticus Abnormal [facility] Microbial culture, routine Staphylococcus epidermidis Abnormal [facility] Wound Culture Escherichia coli Abnormal [facility] Wound Culture Staphylococcus haemolyticus Abnormal [facility] Wound Culture Staphylococcus capitis Abnormal [facility] Wound Culture Staphylococcus epidermidis Abnormal [facility] CNOVon 02-26-2021 CNOV Office Visit (UCWSTR) BARBARA YAP ([id number]) 1990 Date Time Provider Department 02/26/21 11:15 AM BRIT GONZALEZWSTR During your visit today, we recorded the following information about you: Temperature Pulse Respiration Blood pressure 97.4 degrees 77/minute 16/minute 122/80 Weight 164.5 kg Brit Gonzalez APRN.CNP 02/26/2021 11:35 AM Signed TOOTHACHE: Your exam shows that your toothache is probably due to tooth decay and infection. Poor dental care is the main cause of this problem. Swelling and redness around a painful tooth often means you have a dental abscess. Pain medicine and antibiotics can help reduce symptoms, but you will need to see a dentist within the next few days to have your problem properly treated. Fillings or root canal work may be needed to save your tooth. If the problem is severe, your tooth may need to be pulled. Please return here right away if you have a fever over 101F, can?t swallow, or develop severe swelling. Brit Gonzalez APRN.CNP 02/26/2021 12:54 PM Signed Visit Date: February 26, 2021 Patient Name: Mr.Justin Kaveh Yap Date of : 1990 MRN/E #: [id number] Chief Complaint Patient presents with: Toothache: toothache x 1 day History of present illness Barbara Yap is a 30 year old male. Presents with complaints of tooth pain, primarily in the front two teeth. He has an appointment scheduled with the dentist in March but is concerned for infection. Denies having any drainage from the teeth, no fever, chills, body aches, headache, or difficulty swallowing. He has been taking ibuprofen for pain with some relief. PAIN EVALUATION No data found in the last 1 encounters. ALLERGIES No Known Allergies PAST MEDICAL HISTORY Diagnosis Date - PMH - PAST MEDICAL HISTORY OF Varicella age 2 year, hospiatalized x 2 weeks, [facility] PAST SURGICAL HISTORY Procedure Laterality Date - NONE Social History Tobacco Use - Smoking status: Current Every Day Smoker - Smokeless tobacco: Never Used - Tobacco comment: not that much Substance Use Topics - Alcohol use: No - Drug use: No FAMILY HISTORY Problem Relation Age of Onset - Asthma Mother - Hypertension Father - Lipids Father Review of Systems Constitutional: Negative for chills, fever and malaise/fatigue. HENT: Tooth pain (front two teeth) Respiratory: Negative for cough, shortness of breath and wheezing. Cardiovascular: Negative for chest pain and palpitations. Gastrointestinal: Negative for abdominal pain, diarrhea, nausea and vomiting. Musculoskeletal: Negative for myalgias. Skin: Negative for itching and rash. Neurological: Negative for dizziness, tingling and headaches. Physical Exam Vitals and nursing note reviewed. Constitutional: Appearance: Normal appearance. HENT: Nose: No congestion. Mouth/Throat: Eyes: Extraocular Movements: Extraocular movements intact. Pupils: Pupils are equal, round, and reactive to light. Cardiovascular: Rate and Rhythm: Normal rate and regular rhythm. Pulses: Normal pulses. Heart sounds: Normal heart sounds. Pulmonary: Effort: Pulmonary effort is normal. Breath sounds: Normal breath sounds. Skin: General: Skin is warm. Neurological: Mental Status: He is alert and oriented to person, place, and time. Coordination: Coordination normal. BP 122/80 Pulse 77 Temp (Src) 97.4 (Tympanic) Resp 16 Wt 362 lb 9.6 oz (164.5kg) SpO2 98% Assessment/Plan (K08.89) Toothache (primary encounter diagnosis) -amoxicillin-clavula dano acid (AUGMENTIN) 875-125 mg per tablet -discussed red flags Take medication as ordered See dentist anitra Follow up if signs of infection worsen Brit Gonzalez APRN.SHAY Discussed above plan with patient. Pt agreeable with above plan. Referring Provider: SELF [200] Allergies As of Date: 02/26/2021 (No Known Allergies) Date Reviewed: 02/26/2021 Reviewed by: Marion Cosby LPN - Fully Assessed Reason for Visit: Toothache [1289] Cmt: toothache x 1 day Primary Visit Diagnosis:Toothache [K08.89] Order(s):amoxicillin -clavulanic acid (AUGMENTIN) 875-125 mg per tabletTake 1 tablet by mouth twice daily for 7 days.Disp: 14 tabletRfl: 0 Prescriptions as of 02/26/2021 Sig: IBUPROFEN 800 MG TABLET Take 1 tablet by mouth every * AMOXICILLIN 875 MG-POTASSIUM * Take 1 tablet by mouth twice * CODEINE 10 MG-GUAIFENESIN 100* Take 1-2 teaspoon(s) (5-10 m* Patient not taking: PSEUDOEPHEDRINE 30 MG TABLET Take 2 tablets every 4-6 hour* Patient not taking: Problem List As Of Date: 02/26/2021 (None) Other instructions from your clinician: TOOTHACHE: Your exam shows that your toothache is probably due to tooth decay and infection. Poor dental care is the main cause of this problem. Swelling and redness around a painful tooth often means you have a dental abscess. Pain medicine and antib (more content not included)... Normal [facility] Vital Signs Date Time Vital Sign Value Performing Clinician Ollie fragoso 06-03-2025 11:08-0400 Body height 182.[address] Julio Culp DO Work Phone: [facility] 06-03-2025 11:08-0400 Body weight 157.[address] Julio Culp DO Work Phone: [facility] 04-29-2025 11:11-0400 Body height 182.[address] Julio Culp DO Work Phone: [facility] 04-29-2025 11:11-0400 Body weight 159.[address] Julio Culp DO Work Phone: [facility] 03-20-2025 11:01-0400 Body height 182.[address] Julio Culp DO Work Phone: [facility] 03-20-2025 11:01-0400 Body weight 159.[address] Julio Culp DO Work Phone: [facility] 02-13-2025 11:03-0400 Body height 182.[address] Julio Culp DO Work Phone: [facility] 02-13-2025 11:03-0400 Body weight 159.[address] Julio Culp DO Work Phone: [facility] 01-09-2025 09:57-0400 Body weight 163.[address] Julio Culp DO Work Phone: [facility] 12-06-2024 10:00-0400 Body height 182.[address] Julio Culp DO Work Phone: [facility] 12-06-2024 10:00-0400 Body weight 165.[address] Julio Culp DO Work Phone: [facility] 11-17-2024 14:08-0500 Body temperature 98.6 [degF] Dr. Julio Culp DO Work Phone: [facility] 11-17-2024 14:08-0500 Diastolic blood pressure 89 mm[Hg] Dr. Julio Culp DO Work Phone: [facility] 11-17-2024 14:08-0500 Heart rate 77 /min Dr. Julio Culp DO Work Phone: [facility] 11-17-2024 14:08-0500 Respiratory rate 18 /min Dr. Julio Culp DO Work Phone: [facility] 11-17-2024 14:08-0500 SaO2% (BldA) [Mass fraction] 100 % Dr. Julio Culp DO Work Phone: [facility] 11-17-2024 14:08-0500 Systolic blood pressure 159 mm[Hg] Dr. Julio Culp DO Work Phone: [facility] 11-17-2024 11:56-0500 Body height 182.[address] Julio Culp DO Work Phone: [facility] 11-17-2024 11:56-0500 Body mass index (BMI) [Ratio] 49.7 kg/m2 Dr. Julio Culp DO Work Phone: [facility] 11-17-2024 11:56-0500 Body weight 166.[address] Julio Culp DO Work Phone: [facility] 11-05-2024 10:00-0500 Body weight 165.[address] Julio Culp DO Work Phone: [facility] 09-24-2024 09:00-0500 Body weight 168.[address] Julio Culp DO Work Phone: [facility] 08-21-2024 09:00-0500 Body weight 172.[address] Julio Culp DO Work Phone: [facility] Encounters Encounter Date Encounter Type Care Provider Facility Start: 08-20-2025 ambulatory Julio Culp Facilit y:[facility] Start: 07-09-2025 End: 07-12-2025 ambulatory Julio Culp Facility:[facility] Start: 06-03-2025 End: 06-11-[address] Julio Mcmullen DO -Nutritional Services Work Phone: Start: 06-03-2025 End: 06-11-[address] Julio Culp DO Work Phone: -Nutritional Services Start: 04-29-2025 End: 05-12-[address] Julio Mcmullen DO -Nutritional Services Work Phone: Start: 04-29-2025 End: 05-12-[address] Julio Culp DO Work Phone: -Nutritional Services Start: 03-20-2025 End: 04-11-[address] Julio Mcmullen DO -Nutritional Services Work Phone: Start: 03-20-2025 End: 04-11-[address] Julio Culp DO Work Phone: -Nutritional Services Start: 02-13-2025 End: 03-11-[address] Julio Mcmullen DO -Nutritional Services Work Phone: Start: 02-13-2025 End: 03-11-[address] Julio Culp DO Work Phone: -Nutritional Services Start: 01-09-2025 End: 01-09-[address] Julio Mcmullen DO -Nutritional Services Work Phone: Start: 01-09-2025 End: 01-09-2025 ambulatory Julio Culp Facility:[facility] Start: 12-06-2024 End: 12-10-[address] Julio Mcmullen DO -Nutritional Services Work Phone: Start: 12-06-2024 End: 12-10-[address] Julio Culp DO Work Phone: [facility] Work Phone: Start: 11-17-2024 End: 11-17-2024 Emergency department patient visit Dr. Julio Culp DO Work Phone: -Emergency Department Work Phone: Start: 11-05-2024 End: 11-09-[address] Julio Mcmullen DO -Nutritional Services Work Phone: Start: 11-05-2024 End: 11-09-2024 ambulatory Julio Culp Facility:[facility] Start: 09-24-2024 End: 10-12-[address] Julio Mcmullen DO -Nutritional Services Work Phone: Start: 09-24-2024 End: 10-12-2024 ambulatory Julio Culp Facility:[facility] Start: 08-21-2024 End: 09-11-[address] Julio Mcmullen DO -Nutritional Services Work Phone: Start: 08-21-2024 End: 09-11-2024 ambulatory Julio Culp Facility:[facility] Start: 07-19-2024 End: 08-11-2024 ambulatory Julio Culp Facility:[facility] Procedures Date Procedure Procedure Detail Performing Clinician Start: 11-17-[address] Julio Culp DO Work Phone: Start: 11-17-2024 Gram stain microscopy D alli Culp DO Work Phone: Start: 11-17-2024 End: 11-17-2024 Microbial culture, routine Dr. Julio Culp DO Work Phone: Plan of Treatment Date Care Activity Detail Author Start: 11-17-2024 [facility] Start: 11-17-2024 Anaerobic Culture [facility] [facility] Start: 11-17-2024 Incision & drainage abscess simple/single I&D ABSCESS SIMPLE/SINGLE [facility] Start: 11-17-2024 Microscopic observat ion [Identifier] in Unspecified specimen by Gram stain [facility] Start: 11-17-2024 Wound Culture Wound Culture [facility] Start: 11-17-2024 Source specific culture [facility] Bacteria identified in Unspecified specimen by Anaerobe culture [facility] Patient referral [facility] Work Phone: Wound microscopy, cu lture and sensitivities [facility] Payers Date Payer Category Payer Medicaid [id number] 2024 Self-pay Unknown [id number] 2.16.8 [id number] Unknown [id number] 2.16.8 [id number] Unknown [id number] 2.16.8 [id number] Unknown [id number] 2.16.8 [id number] Unknown [id number] 2.16.8 [id number] Unknown [id number] 2.16.8 [id number] Unknown [id number] 2.16.8 [id number] Unknown [id number] 2.16.8 [id number] Unknown [id number] 2.16.8 [id number] Unknown [id number] 2.16.8 [id number] Unknown [id number] 2.16.8 [id number] Unknown [id number] 2.16.8 [id number] Unknown [id number] 2.16.8 [id number] Social History Date Type Detail Facility Start: 11-17-2024 End: 11-17-2024 Tobacco smoking status NHIS Smokes tobacco daily (finding) [facility] Start: 11-17-2024 End: 12-11-2024 Sex Male (finding) [facility] Start: 1990 Sex Assigned At Male [facility] Sex Male [facility] Discharge summary 11-17-2024 Note Date & Type Note Facility 11-17-2024 Discharge summary [facility] Discharge summary 11-17-2024 Note Date & Type Note Facility 11-17-2024 Discharge summary Note Date/Time November 17, 2024 2:12 pm [facility] Medical Records Department [address] [place] [address] Emergency Department Summary 11/17/24 MR#: [id number] Acct: [id number] Name: BARBARA YAP Rep #:[id number] 9 : 1990 34 From: Aston Caldera DO PCP: Dr. Julio Culp, DO Status:RE G ER Location: ED HPI History of Present Illness Chief Complaint: Abscess Narrative Narrative: Patient is a 34-year-old male with no known significant past medical history whopresented to the emergency department with chief complaint of buttock pain. According to the patient he states the last few days he has noted worsening buttock pain and increased swelling just below his buttocks. He states that he has had this happen before but they have not gotten to the size. He states thatit is very painful for him to sit or attempt to walk therefore he came here for the valuation management. Patient denies any history of diabetes. PFSH PFSH Medical History no medical history Home Medications ?Medication ?Instructions ?Recorded ?Last Taken ?Type ibuprofen 125 mg-acetaminophen 250 1 tab PO Q8H PRN Unknown History mg tablet (Advil Dual Action) cephalexin 500 mg capsule 500 mg PO Q12H 7 days #14 ca ps 11/17/24 Unknown Rx sulfamethoxazole 800 1 tab PO Q12H 7 days #14 tab s 11/17/24 Unknown Rx mg-trimethoprim 160 mg tablet (Bactrim DS) Allergy/AdvReac Type Severity Reaction Status Date / Time No Known Allergies Allergy Verified 11/17/24 11:57 Family History Father Diabetes Arthritis Grandfather Testicular cancer Social History adopted: No household members: family current occupational status: unemployed pets and animals: Yes (1) pets and animals: dog(s) sexually active: No Smoking Status: Current every day smoker tobacco type: cigarettes Tobacco: How many years used: 12 alcohol intake: never substance use type: does not use caffeine: Yes (6) Type: other frequency: does not exercise do you feel safe at home: Yes ROS ROS ED ROS Narrative Constitutional: Denies fevers, chills, headaches, lightness, dizziness Eyes: Denies change in vision double vision blurry vision Abdomen: Complains of left buttock pain denies abdominal pain nausea vomiting : Denies urinary symptoms Neurological: Denies numbness, weakness, tingling Musculoskeletal: Denies back pain Skin: Complains of swelling near his but as noted above EXAM Physical Exam Narrative Exam Narrative: General: Patient was lying in bed rest comfortably did not appear to be in acutedistress Head: Atraumatic, normocephalic Eyes: PERRL bilaterally, EOMI bilaterally, no conjunctival injection noted Neck: Soft, supple, trachea midline Cardiovascular: Regular rate and rhythm no murmurs gallops rubs noted Abdomen: Soft, nondistended, nontender to palpation Genitourinary: No concern for Yonas's gangrene Rectal: Patient has a area of swelling noted in his perineal region there is fluctuance noted with tender to palpation, no concern for perirectal abscess Extremities: +5/5 strength noted in bilateral upper and lower extremities Neurological: Patient following commands knew that he was at [facility] year is 2024 Skin: See rectal Const Vital Signs: 11/17/24 11:56 Temperature 97.6 F L Temperature Source Temporal Pulse Rate 104 H Respiratory Rate 16 Blood Pressure 152/90 H Blood Pressure Mean 110 Pulse Ox 99 Oxygen Delivery Method Room Air MDM MDM MDM Narrative Medical decision making narrative: patient is a 34-year-old male who presented to the emergency department with chief complaint of perineal swelling. On the differential diagnose includes Melamin to cellulitis, abscess. Patient had the area anesthetized and incision and drainage was performed there was significant amount of purulent drainage expressed. Patient tolerated this well without complications. Patient was advised to do sitz bath as he was givengeneral surgery follow-up as well as encouraged to follow-up with his primary care physician. Patient was given first dose of antibiotics here and antibiotics sent to the pharmacy. He is encouraged to return for worsening painand swelling while on the antibiotics and was advised that if this occurs he will need to return for IV antibiotics. Patient's glucose was checked here and was normal. He is agreeable this plan all question concerns answered he is discharged home in stable condition and states that he is feeling much better. Lab Data Labs: Laboratory Results - last 24 hr 11/17/24 13:44 POC Glucose 81 Discharge Plan Triage Chief Complaint: Abscess ED Provider: Aston Caldera Dx/Rx/DC Orders Clinical Impression: Abscess of perineum Prescriptions: New cephalexin 500 mg capsule 500 mg PO Q12H 7 Days Qty: 14 0RF sulfamethoxazole-trimethoprim [Bactrim DS] 800-160 mg tablet 1 tab PO Q12H 7 Days Qty: 14 0RF No Action ibuprofen-acetaminophen [Advil Dual Action] 125-250 mg tablet 1 tab PO Q8H PRN Primary Care Provider: Julio Culp Referrals: Julio Culp DO [Primary Care Provider] - Uli Elkins MD [Med Staff - Active Staff] - Activity Restrictions/Additional Instructions: Take antibiotics as prescribed. Follow-up on wound cultures that were obtained here with your primary care physician. You referred to general surgery as well. Ensure you are doing sitz bath as we discussed. If you are having fevers worsening pain significant drainage from the wound while on antibiotics you needto return for IV antibiotics. Print Language: Romanian Disposition Disposition: Home, Self Care What to do if you have Problems For any increased pain, shortness of breath, bleeding, nausea or vomiting, chestpain, or any unexpected problems, contact your Primary Care Provider. Call [facility] ([phone]) or report to the closest Emergency Room. Call 911 if necessary. 11/17/24 1412 <Electronically signed by Aston Caldera DO> Cosigner Signature (if applicable): CC: Dr. Julio Culp DO ~ Signed [facility] Work Phone: Progress note 10-04-2021 Note Date & Type Note Facility 10-04-2021 Note HNO ID: [id number] Author: Noman Simon PA-C Service: ? Author Type: Physician Transmission Line Engineer Type: Progress Notes Filed: 10/04/2021 11:54 AM Note Text: This is an Express Care eVisit note for Barbara Yap eVisit/Questionnaire reviewed The chief complaint for the visit - Patient presents with: Sinus Problem Recommendations/Treatment plan - See My Chart Message to patient Noman Simon PA-C [facility] Progress note 02-26-2021 Note Date & Type Note Facility 02-26-2021 Note HNO ID: [id number] Author: Brit Gonzalez APRN.CNP Service: ? Author Type: Nurse Practitioner Type: Progress Notes Filed: 02/26/2021 12:54 PM Note Text: Visit Date: February 26, 2021 Patient Name: Mr.Justin Kaveh Yap Date of : 1990 MRN/E #: [id number] Chief Complaint Patient presents with: Toothache: toothache x 1 day History of present illness Barbara Yap is a 30 year old male. Presents with complaints of tooth pain, primarily in the front two teeth. He has an appointment scheduled with the dentist in March but is concerned for infection. Denies having any drainage from the teeth, no fever, chills, body aches, headache, or difficulty swallowing. He has been taking ibuprofen for pain with some relief. PAIN EVALUATION No data found in the last 1 encounters. ALLERGIES No Known Allergies PAST MEDICAL HISTORY Diagnosis Date - PM - PAST MEDICAL HISTORY OF Varicella age 2 year, hospiatalized x 2 weeks, [facility] PAST SURGICAL HISTORY Procedure Laterality Date - NONE Social History Tobacco Use - Smoking status: Current Every Day Smoker - Smokeless tobacco: Never Used - Tobacco comment: not that much Substance Use Topics - Alcohol use: No - Drug use: No FAMILY HISTORY Problem Relation Age of Onset - Asthma Mother - Hypertension Father - Lipids Father Review of Systems Constitutional: Negative for chills, fever and malaise/fatigue. HENT: Tooth pain (front two teeth) Respiratory: Negative for cough, shortness of breath and wheezing. Cardiovascular: Negative for chest pain and palpitations. Gastrointestinal: Negative for abdominal pain, diarrhea, nausea and vomiting. Musculoskeletal: Negative for myalgias. Skin: Negative for itching and rash. Neurological: Negative for dizziness, tingling and headaches. Physical Exam Vitals and nursing note reviewed. Constitutional: Appearance: Normal appearance. HENT: Nose: No congestion. Mouth/Throat: Eyes: Extraocular Movements: Extraocular movements intact. Pupils: Pupils are equal, round, and reactive to light. Cardiovascular: Rate and Rhythm: Normal rate and regular rhythm. Pulses: Normal pulses. Heart sounds: Normal heart sounds. Pulmonary: Effort: Pulmonary effort is normal. Breath sounds: Normal breath sounds. Skin: General: Skin is warm. Neurological: Mental Status: He is alert and oriented to person, place, and time. Coordination: Coordination normal. BP 122/80 Pulse 77 Temp (Src) 97.4 (Tympanic) Resp 16 Wt 362 lb 9.6 oz (164.5kg) SpO2 98% Assessment/Plan (K08.89) Toothache (primary encounter diagnosis) -amoxicillin-clavulanic acid (AUGMENTIN) 875-125 mg per tablet -discussed red flags Take medication as ordered See dentist anitra Follow up if signs of infection worsen Brit Gonzalez APRN.SHAY Discussed above plan with patient. Pt agreeable with above plan. [facility] Evaluation note Note Date & Type Note Facility Evaluation note No assessment information availa ble [facility] Work Phone: Hospital Discharge instructions Note Date & Type Note Facility Hospital Discharge instructions Additional Instructions Take antibiotics as prescribed. Follow-up on wound cultures that were obtained here with your primary care physician. You referred to general surgery as well. Ensure you are doing sitz bath as we discussed. If you are having fevers worsening pain significant drainage from the wound while on antibiotics you need to return for IV antibiotics. [facility] Work Phone: Reason for referral (narrative) Note Date & Type Note Facility Reason for referral (narrative) No reason for referral information available [facility] Work Phone: Summary Purpose Family History No Family History Records Found Relationship Condition Age at Onset Recorded Date/T yesy father Diabetes mellitus Unknown Arthritis Unknown grandfather Malignant neoplasm of testicle Unknown Advance Directives No Advanced Directives Records Found Advance Directive Response Recorded Date/ Time Living Will No November 17, 2024 12:16pm Power of Machine Tool Dresser No November 17 12:16pm Advance Directive Response Recorded Date/ Time Living Will No November 17, 2024 1:16pm Do you have a Healthcare Power of Machine Tool Dresser? No November 17, 2024 1:16pm Chief Complaint and Reason for Visit Chief Complaint Admit Date MORBID OBESITY August 21, 2024 8:51am MORBID OBESITY September 24, 2024 8 :54am MORBID OBESITY November 05, 2024 9:37am ABSCESS November 17, 2024 11:5 5am Chief Complaint Admit Date MORBID OBESITY August 21, 2024 8:51am MORBID OBESITY September 24, 2024 8 :54am MORBID OBESITY November 05, 2024 9:37am ABSCESS November 17, 2024 11:5 5am MORBID OBESITY December 06, 2024 9:4 1am Chief Complaint Admit Date ABSCESS November 17, 2024 11:5 5am MORBID OBESITY December 06, 2024 9:4 1am MORBID OBESITY January 09, 2025 9:4 5am MORBID OBESITY February 13, 2025 10:42 am Chief Complaint Admit Date MORBID OBESITY January 09, 2025 9:4 5am MORBID OBESITY February 13, 2025 10:42 am MORBID OBESITY March 20, 2025 10:51 am Chief Complaint Admit Date MORBID OBESITY February 13, 2025 10:42 am MORBID OBESITY March 20, 2025 10:51 am MORBID OBESITY April 29, 2025 10 :51am Chief Complaint Admit Date MORBID OBESITY February 13, 2025 10:42 am MORBID OBESITY March 20, 2025 10:51 am MORBID OBESITY April 29, 2025 10 :51am MORBID OBESITY June 03, 2025 10:48am Additional Source Comments (unrecognized sect ion and content) No Status Records FoundNo Status Records Found INFORMATION SOURCE (unrecogn ized section and content) DATE CREATED AUTHOR 10/22/2021 [facility] DATE CREATED AUTHOR AUTHOR'S ORGANIZ ATION [facility] Care Teams (unrecognized sec tion and content) Team Status: Active Member Role Status Dates Dr. Julio Culp DO Primary Care Provider Active Team Status: Inactive Member Role Status Dates Dr. Julio Culp DO Primary Care Provider Active Start: August 21, 2024 End: September 11, 2024 Dr. Julio Culp DO Attending Provider Active Start: August 21, 2024 End: September 11, 2024 Dr. Julio Culp DO Referring Provider Active Start: August 21, 2024 End: September 11, 2024 Team Status: Inactive Member Role Status Dates Dr. Julio Culp DO Primary Care Provider Active Start: September 24, 2024 End: October 12, 2024 Dr. Julio Culp DO Attending Provider Active Start: September 24, 2024 End: October 12, 2024 Dr. Julio Culp DO Referring Provider Active Start: September 24, 2024 End: October 12, 2024 Team Status: Inactive Member Role Status Dates Dr. Julio Culp DO Primary Care Provider Active Start: November 05, 2024 End: November 09, 2024 Dr. Julio Culp DO Attending Provider Active Start: November 05, 2024 End: November 09, 2024 Dr. Julio Culp DO Referring Provider Active Start: November 05, 2024 End: November 09, 2024 Team Status: Inactive Member Role Status Dates Dr. Julio Culp DO Primary Care Provider Active Start: November 17, 2024 End: November 17, 2024 Dr. Aston Caldera DO Emergency Provider Active Start: November 17, 2024 End: November 17, 2024 Team Status: Inactive Member Role Status Dates Dr. Julio Culp DO Primary Care Provider Active Start: November 17, 2024 End: November 17, 2024 Dr. Aston Caldera DO Attending Provider Active Start: November 17, 2024 End: November 17, 2024 Dr. Aston Caldera DO Emergency Provider Active Start: November 17, 2024 End: November 17, 2024 Team Status: Inactive Member Role Status Dates Dr. Julio Culp DO Primary Care Provider Active Start: December 06, 2024 End: December 10, 2024 Dr. Julio Culp DO Attending Provider Active Start: December 06, 2024 End: December 10, 2024 Dr. Julio Culp DO Referring Provider Active Start: December 06, 2024 End: December 10, 2024 Team Status: Active Member Role/Relationship Status Dates Dr. Julio Culp DO Primary Care Provider Active Team Status: Inactive Member Role/Relationship Status Dates Dr. Julio Culp DO Primary Care Provider Active Start: November 17, 2024 End: November 17, 2024 Dr. Aston Caldera DO Attending Provider Active Start: November 17, 2024 End: November 17, 2024 Dr. Aston Caldera DO Emergency Provider Active Start: November 17, 2024 End: November 17, 2024 Team Status: Inactive Member Role/Relationship Status Dates Dr. Julio Culp DO Primary Care Provider Active Start: December 06, 2024 End: December 10, 2024 Dr. Julio Culp DO Attending Provider Active Start: December 06, 2024 End: December 10, 2024 Dr. Julio Culp DO Referring Provider Active Start: December 06, 2024 End: December 10, 2024 Team Status: Inactive Member Role/Relationship Status Dates Dr. Julio Culp DO Primary Care Provider Active Start: January 09, 2025 End: January 09, 2025 Dr. Julio Culp DO Attending Provider Active Start: January 09, 2025 End: January 09, 2025 Dr. Julio Culp DO Referring Provider Active Start: January 09, 2025 End: January 09, 2025 Team Status: Inactive Member Role/Relationship Status Dates Dr. Julio Culp DO Primary Care Provider Active Start: February 13, 2025 End: March 11, 2025 Dr. Julio Culp DO Attending Provider Active Start: February 13, 2025 End: March 11, 2025 Dr. Julio Culp DO Referring Provider Active Start: February 13, 2025 End: March 11, 2025 Team Status: Inactive Member Role/Relationship Status Dates Dr. Julio Culp DO Primary Care Provider Active Start: January 09, 2025 End: January 09, 2025 Dr. Julio Culp DO Attending Provider Active Start: January 09, 2025 End: January 09, 2025 Dr. Julio Culp DO Referring Provider Active Start: January 09, 2025 End: January 09, 2025 Team Status: Inactive Member Role/Relationship Status Dates Dr. Julio Culp DO Primary Care Provider Active Start: February 13, 2025 End: March 11, 2025 Dr. Julio Culp DO Attending Provider Active Start: February 13, 2025 End: March 11, 2025 Dr. Julio Culp DO Referring Provider Active Start: February 13, 2025 End: March 11, 2025 Team Status: Inactive Member Role/Relationship Status Dates Dr. Julio Culp DO Primary Care Provider Active Start: March 20, 2025 End: April 11, 2025 Dr. Julio Culp DO Attending Provider Active Start: March 20, 2025 End: April 11, 2025 Dr. Julio Culp DO Referring Provider Active Start: March 20, 2025 End: April 11, 2025 Team Status: Inactive Member Role/Relationship Status Dates Dr. Julio Culp DO Primary Care Provider Active Start: February 13, 2025 End: March 11, 2025 Dr. Julio Culp DO Attending Provider Active Start: February 13, 2025 End: March 11, 2025 Dr. Julio Culp DO Referring Provider Active Start: February 13, 2025 End: March 11, 2025 Team Status: Inactive Member Role/Relationship Status Dates Dr. Julio Culp DO Primary Care Provider Active Start: March 20, 2025 End: April 11, 2025 Dr. Julio Culp DO Attending Provider Active Start: March 20, 2025 End: April 11, 2025 Dr. Julio Culp DO Referring Provider Active Start: March 20, 2025 End: April 11, 2025 Team Status: Inactive Member Role/Relationship Status Dates Dr. Julio Culp DO Primary Care Provider Active Start: April 29, 2025 End: May 12, 2025 Dr. Julio Culp DO Attending Provider Active Start: April 29, 2025 End: May 12, 2025 Dr. Julio Culp DO Referring Provider Active Start: April 29, 2025 End: May 12, 2025 Team Status: Active Member Role/Relationship Status Dates Dr. Julio Culp DO Primary care physician Active Team Status: Inactive Member Role/Relationship Status Dates Dr. Julio Culp DO Primary care physician Active Start: February 13, 2025 End: March 11, 2025 Dr. Julio Culp DO Attending physician Active Start: February 13, 2025 End: March 11, 2025 Dr. Julio Culp DO Referring Provider Active Start: February 13, 2025 End: March 11, 2025 Team Status: Inactive Member Role/Relationship Status Dates Dr. Julio Culp DO Primary care physician Active Start: March 20, 2025 End: April 11, 2025 Dr. Julio Culp DO Attending physician Active Start: March 20, 2025 End: April 11, 2025 Dr. Julio Culp DO Referring Provider Active Start: March 20, 2025 End: April 11, 2025 Team Status: Inactive Member Role/Relationship Status Dates Dr. Julio Culp DO Primary care physician Active Start: April 29, 2025 End: May 12, 2025 Dr. Julio Culp DO Attending physician Active Start: April 29, 2025 End: May 12, 2025 Dr. Julio Culp DO Referring Provider Active Start: April 29, 2025 End: May 12, 2025 Team Status: Inactive Member Role/Relationship Status Dates Dr. Julio Culp DO Primary care physician Active Start: June 03, 2025 End: June 11, 2025 Dr. Julio Culp DO Attending physician Active Start: June 03, 2025 End: June 11, 2025 Dr. Julio Culp DO Referring Provider Active Start: June 03, 2025 End: June 11, 2025 Goals (unrecognized section and content) Goals may be documented in a n alternate sectionGoals may be documented in an alternate sectionGoals may be documented in an alternate sectionGoals may be documented in an alternate sectionGoals may be documented in an alternate sectionGoals may be documented in an alternate section FOR RECORDS PERTAINING TO PATIENTS WHO ARE OR HAVE BEEN ENROLLED IN A CHEMICAL DEPENDENCY/SUBSTANCEABUSE PROGRAM, SOME INFORMATION MAY BE OMITTED. This clinical summary was aggregated from multiple sources. Caution should be exercised in using it in the provision of clinical care. This summary normalizes information from multiple sources, and as a consequence, information in this document may materially change the coding, format and clinical context of patient data. In addition, data may be omitted in some cases. CLINICAL DECISIONS SHOULD BE BASED ON THE PRIMARY CLINICAL RECORDS. [employer] provides no warranty or guarantee of the accuracy or completeness of information in this document.
[2025-09-07 10:40] VITALS: BP 129/64; PULSE 66; RESP 18; TEMP 37.1; O2SAT 99
== END 2025-09-07 10:40 | disposition home or self-care (01) ==
PROVIDERS: Emergency Provider Emergency Medicine; PCP Family Medicine; Visit Provider Emergency Medicine
DX: K02.9 Dental caries, unspecified (principal); F17.210 Nicotine dependence, cigarettes, uncomplicated; G50.1 Atypical facial pain
CPT/HCPCS: 99282